=== PATIENT | male | born 1995 | race Caucasian/White ===

== ENCOUNTER 2016-11-27 11:54 | Emergency (ER) | payer SELFPAY ==
[2016-11-27] MEDS ORDERED: LIDOCAINE 1% INJ-PF (10 MG/ML) 30 ML SDV INJ ONE (12:26)
--- NOTE | 2016-11-27 12:27 | ER Document Report ---
ED Skin Rash/Insect Bite/Abscs - General Chief Complaint: Abscess Stated Complaint: POSSIBLE ABSCESS Time Seen by Provider: 11/27/16 12:11 Mode of Arrival: Ambulatory Information source: Patient Notes: Patient is a 21-year-old male who presents to the ER today for abscess to his abdomen that he states has been there for approximately 1 week. Patient denies any fever, chills, drainage from the area. 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 TRAVEL OUTSIDE OF THE [place] IN LAST 30 DAYS: No - Related Data Allergies/Adverse Reactions: No Known Allergies Allergy (Verified 10/25/12 12:01) Past Medical History - General Information source: Patient - Social History Smoking Status: Former Smoker Family History: Reviewed & Not Pertinent Patient has suicidal ideation: No Patient has homicidal ideation: No Renal/ Medical History: Denies: Hx Peritoneal Dialysis - Immunizations Hx Diphtheria, Pertussis, Tetanus Vaccination: Yes Review of Systems - Review of Systems Constitutional: No symptoms reported EENT: No symptoms reported Cardiovascular: No symptoms reported Respiratory: No symptoms reported Gastrointestinal: No symptoms reported Genitourinary: No symptoms reported Male Genitourinary: No symptoms reported Musculoskeletal: No symptoms reported Skin: See HPI Hematologic/Lymphatic: No symptoms reported Neurological/Psychological: No symptoms reported Physical Exam - Vital signs Vitals: Temp Pulse Resp BP Pulse Ox 98.4 F 90 16 139/81 H 100 11/27/16 11:57 11/27/16 11:57 11/27/16 11:57 11/27/16 11:57 11/27/16 11:57 - Notes Notes: PHYSICAL EXAMINATION: GENERAL: Well-appearing and in no acute distress. HEAD: Atraumatic, normocephalic. EYES: Pupils equal round and reactive to light, extraocular movements intact, sclera anicteric, conjunctiva are normal. ENT: ear canals without erythema or foreign body, TMs pearly polo with good bony landmarks, nares patent, oropharynx clear without exudates. Moist mucous membranes. NECK: Normal range of motion, supple without lymphadenopathy LUNGS: CTAB and equal. No wheezes rales or rhonchi. HEART: Regular rate and rhythm without murmurs ABDOMEN: see skin below, Soft, no tenderness. No guarding, no rebound EXTREMITIES: Normal range of motion, no pitting edema. No cyanosis. NEUROLOGICAL: Cranial nerves grossly intact. Normal sensory/motor exams. PSYCH: Normal mood, normal affect. SKIN: Warm, Dry, normal turgor, 3cm in diameter abscess, erythematous and flucutant to suprapubic area of abdomen, tender, warm Course - Vital Signs Vital signs: Temp Pulse Resp BP Pulse Ox 98.4 F 90 16 139/81 H 100 11/27/16 11:57 11/27/16 11:57 11/27/16 11:57 11/27/16 11:57 11/27/16 11:57 Procedures - Incision and Drainage Lower Abdomen Time completed: : Type: Simple Anesthetic type: 1% Lidocaine mL's of anesthetic: 4 Blade size: 11 I&D procedure: Betadine prep applied Incision Method: Incision made by scalpel Amount/type of drainage: pus and blood Discharge - Discharge Clinical Impression: Abscess Condition: Stable Disposition: HOME, SELF-CARE Instructions: Post Incision and Drainage, Abscess ([facility]), Oral Narcotic Medication ([facility]) Additional Instructions: Return immediately for any new or worsening symptoms. Follow up with primary care provider, call tomorrow to make followup appointment. Prescriptions: Doxycycline Hyclate 100 mg PO BID #20 capsule Forms: Return to Work
[2016-11-27] MEDS ORDERED: OXYCODONE-ACETAMINOPHEN 5-325 MG TABLET PO ONE (13:19)
[2016-11-27] MEDS ORDERED: HYDROCODONE/ACETAMINOPHEN 5-325 MG 6 TAB/DSPK PO PRN (13:23)
[2016-11-27 14:01] VITALS: BP 112/66
== END 2016-11-27 13:50 | disposition home or self-care (01) ==
LOC: ER 11:54
PROC: 0H97XZZ Drainage of Abdomen Skin, External Approach (ICD-10-PCS; principal; 2016-11-27)
DX: L02.211 Cutaneous abscess of abdominal wall (principal); Z87.891 Personal history of nicotine dependence
CPT/HCPCS: 10060; 99283; 87070; 87205; 87075; 87077; 87186; J3490

== ENCOUNTER 2018-11-02 21:14 | Emergency (ER) | payer SELFPAY ==
[2018-11-02 22:42] LABS: ABSOLUTE EOSINOPHILS # (AUTO) 0.1 10^3/uL (0.0-0.6); ABSOLUTE LYMPHOCYTES (AUTO) 1.4 10^3/uL (0.5-4.7); ABSOLUTE MONOCYTES (AUTO) 1.2 10^3/uL (0.1-1.4); ABSOLUTE NEUT (AUTO) 7.9 10^3/uL (1.7-8.2); BASOPHILS % (AUTO) 0.5 % (0-2); EOSINOPHILS % (AUTO) 1.1 % (0-6); HEMATOCRIT 40.7 % (37.9-51.0); LYMPHOCYTES % (AUTO) 12.8 % (13-45); MEAN CORPUSCULAR HEMOGLOBIN 28.6 pg (27.0-33.4); MEAN CORPUSCULAR HGB CONC 34.3 g/dL (32.0-36.0); MEAN CORPUSCULAR VOLUME 84 fl (80-97); MONOCYTES % (AUTO) 11.7 % (3-13); PLATELET COUNT 326 10^3/uL (150-450); RED BLOOD COUNT 4.88 10^6/uL (4.35-5.55); RED CELL DISTRIBUTION WIDTH 12.9 % (11.5-14.0); SEGMENTED NEUTROPHILS % (AUTO) 73.9 % (42-78); TOTAL CELLS COUNTED % (AUTO) 100 %; WHITE BLOOD COUNT 10.7 10^3/uL (4.0-10.5)
[2018-11-02 22:59] LABS: ALBUMIN 4.7 g/dL (3.5-5.0); ALKALINE PHOSPHATASE 57 U/L (38-126); ANION GAP 14 (5-19); ASPARTATE AMINO TRANSFERASE 26 U/L (17-59); BILIRUBIN,DIRECT 0.2 mg/dL (0.0-0.4); BILIRUBIN,TOTAL 0.4 mg/dL (0.2-1.3); BLOOD UREA NITROGEN 13 mg/dL (7-20); CALCIUM 9.9 mg/dL (8.4-10.2); CARBON DIOXIDE 25 mmol/L (22-30); CHLORIDE 101 mmol/L (98-107); GLUCOSE 98 mg/dL (75-110); POTASSIUM 4.1 mmol/L (3.6-5.0); TOTAL PROTEIN 7.7 g/dL (6.3-8.2)
[2018-11-02] MEDS ORDERED: LIDOCAINE 1% INJ-PF (10 MG/ML) 30 ML SDV INJ ONE (23:51)
[2018-11-02] MEDS ORDERED: SULFAMETHOXAZOLE/TRIMETHOPRIM 800-160 MG TABLET PO ONE (23:51)
[2018-11-02] MEDS ORDERED: CEFTRIAXONE INJ 1000 MG VIAL IM ONE (23:51)
--- NOTE | 2018-11-02 23:55 | ER Document Report ---
ED Extremity Problem, Lower - General Chief Complaint: Ankle Swelling Stated Complaint: ANKLE PAIN Time Seen by Provider: 11/02/18 23:42 Notes: Patient is a 23-year-old male that comes emergency department for chief complaint of swelling, pain, and redness to the left foot and ankle area. He states this is been progressing over the past 3 days. Denies fever/chills, nausea/vomiting. He states he has had both abscesses and cellulitis in the past. He reports his tetanus is up-to-date within 5 years. He denies any daily medications or medical history otherwise including diabetes. 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 TRAVEL OUTSIDE OF THE [place] IN LAST 30 DAYS: No - Related Data Allergies/Adverse Reactions: No Known Allergies Allergy (Verified 10/25/12 12:01) Past Medical History - General Information source: Patient - Social History Smoking Status: Never Smoker Drug Abuse: None Lives with: Family Family History: Reviewed & Not Pertinent Renal/ Medical History: Denies: Hx Peritoneal Dialysis - Immunizations Immunizations up to date: Yes Hx Diphtheria, Pertussis, Tetanus Vaccination: Yes Review of Systems - Review of Systems Constitutional: No symptoms reported EENT: No symptoms reported Cardiovascular: No symptoms reported Respiratory: No symptoms reported Gastrointestinal: No symptoms reported Genitourinary: No symptoms reported Male Genitourinary: No symptoms reported Musculoskeletal: See HPI Skin: See HPI Hematologic/Lymphatic: No symptoms reported Neurological/Psychological: No symptoms reported Physical Exam - Vital signs Vitals: Temp Pulse Resp BP Pulse Ox 99.4 F 121 H 16 151/76 H 98 11/02/18 21:55 11/02/18 21:55 11/02/18 21:55 11/02/18 21:55 11/02/18 21:55 - Notes Notes: GENERAL: Alert, interacts well. No acute distress. HEAD: Normocephalic, atraumatic. EYES: Pupils equal, round, and reactive to light. Extraocular movements intact. ENT: Oral mucosa moist, tongue midline. Oropharynx unremarkable. Airway patent. LUNGS: Clear to auscultation bilaterally, no wheezes, rales, or rhonchi. No respiratory distress. HEART: Regular rate and rhythm. No murmur ABDOMEN: Soft, non-tender. Non-distended. EXTREMITIES: Left foot with dorsal and lateral swelling and erythema with mild tenderness. There is soft tissue swelling noted of the foot compared to the right foot. Capillary refill and sensation intact, no open wounds, no induration or fluctuance, no streaking up the leg. Patient able to walk. Normal extremities otherwise. BACK: no cervical, thoracic, lumbar midline tenderness. No saddle anesthesia, normal distal neurovascular exam. NEUROLOGICAL: Alert and oriented x3. Normal speech. PSYCH: Normal affect, normal mood. SKIN: Warm, dry, normal turgor. Course - Re-evaluation Re-evalutation: Patient has a definite swollen left foot with erythema, warmth, some tenderness consistent with cellulitis. I do not see a wound but patient states he always is getting nicks and cuts with his job. He has had cellulitis in the past. Patient is afebrile, vital signs unremarkable on recheck, he is actually very well-appearing. He denies history of diabetes or IV drug abuse. Because of his dirty work environment I recommended a foot x-ray to rule out foreign body but patient refused. Patient requests antibiotic therapy, states he will elevate to the best of his ability, states he will return if he worsens. Stable time of discharge. - Vital Signs Vital signs: Temp Pulse Resp BP Pulse Ox 99.1 F 89 18 136/72 H 97 11/03/18 00:15 11/03/18 00:15 11/03/18 00:15 11/03/18 00:15 11/03/18 00:15 - Laboratory Result Diagrams: 11/02/18 22:07 11/02/18 22:07 Laboratory results interpreted by me: 11/02/18 22:07 WBC 10.7 H Lymphocytes % 12.8 L Discharge - Discharge Clinical Impression: Cellulitis of left foot Condition: Stable Disposition: HOME, SELF-CARE Additional Instructions: Your evaluation is consistent with cellulitis. Take the antibiotics as prescribed to completion, elevate your foot, monitor, return immediately if you worsen including spreading redness, fever/chills, or any other concerning or worsening symptoms. Prescriptions: Cephalexin Monohydrate [Keflex 500 mg Capsule] 500 mg PO QID #28 capsule Sulfamethoxazole/Trimethoprim [Bactrim Ds Tablet] 1 each PO BID #14 tablet
[2018-11-03 00:16] VITALS: BP 136/72
== END 2018-11-03 00:28 | disposition home or self-care (01) ==
LOC: ER 21:14
DX: L03.116 Cellulitis of left lower limb (principal); M25.472 Effusion, left ankle
CPT/HCPCS: 99283; 96372; 36415; 87040; 85025; 80053; J3490; J0696

== ENCOUNTER 2019-12-21 17:51 | Emergency (ER) | payer SELFPAY ==
[2019-12-21] MEDS ORDERED: NORMAL SALINE 1000 ML 1,000 ML IV ONE (18:36)
[2019-12-21] MEDS ORDERED: CLINDAMYCIN 300 MG/D5W RTU 300 MG/50 ML RTUPB IV ONE (18:36)
--- NOTE | 2019-12-21 18:36 | ER Document Report ---
ED Medical Screen (RME) - General TRAVEL OUTSIDE OF THE [place] IN LAST 30 DAYS: No <KATERINE HONEYCUTT - Last Filed: 12/21/19 19:19> <AJ JOHNSON IV - Last Filed: 12/22/19 01:30> - General Chief Complaint: Swelling of Lower Extremity Stated Complaint: FOOT PAIN/SWELLING Time Seen by Provider: 12/21/19 18:26 Notes: Patient is a 24-year-old male with a history of MRSA who presents emergency department with a chief complaint of left lower extremity swelling and pain. Patient states that he noticed he had swelling 2 days ago. Patient has a history of cellulitis. Denies any active IV drug use, but history of IV drug use. Denies any body aches or chills. Patient is an everyday smoker. Exam: 2+ pitting edema noted to left lower extremity. I have greeted and performed a rapid initial assessment of this patient. A comprehensive ED assessment and evaluation of the patient, analysis of test results and completion of medical decision making process will be conducted by an additional ED providers. (KATERINE HONEYCUTT) - Related Data Allergies/Adverse Reactions: No Known Allergies Allergy (Verified 10/25/12 12:01) Past Medical History - Social History Chew tobacco use (# tins/day): No Frequency of alcohol use: None Drug Abuse: None Renal/ Medical History: Denies: Hx Peritoneal Dialysis - Immunizations Immunizations up to date: Yes Hx Diphtheria, Pertussis, Tetanus Vaccination: Yes <KATERINE HONEYCUTT - Last Filed: 12/21/19 19:19> Physical Exam - Vital signs Vitals: Temp Pulse Resp BP Pulse Ox 98.3 F 107 H 20 136/67 H 100 12/21/19 18:07 12/21/19 18:07 12/21/19 18:07 12/21/19 18:07 12/21/19 18:07 Course - Laboratory Result Diagrams: 12/21/19 19:30 12/21/19 19:30 <AJ JOHNSON IV - Last Filed: 12/22/19 01:30> - Vital Signs Vital signs: Temp Pulse Resp BP Pulse Ox 97.7 F 94 20 120/72 99 12/21/19 22:21 12/21/19 22:21 12/21/19 18:07 12/21/19 22:21 12/21/19 22:21
--- NOTE | 2019-12-21 19:33 | RADIOLOGY REPORT (SQ) ---
EXAM DESCRIPTION: FOOT LEFT COMPLETE IMAGES COMPLETED DATE/TIME: 12/21/2019 7:17 pm REASON FOR STUDY: LLE swelling COMPARISON: None. NUMBER OF VIEWS: Three views. TECHNIQUE: AP, lateral and oblique radiographic images acquired of the left foot. LIMITATIONS: None. FINDINGS: MINERALIZATION: Normal. BONES: No acute fracture or dislocation. No worrisome bone lesions. JOINTS: No effusions. SOFT TISSUES: Mild soft tissue swelling. 3 mm linear metallic object in the soft tissues adjacent to the tuft of the great toe. OTHER: No other significant finding. IMPRESSION: 3 MM LINEAR METALLIC OBJECT IN THE SOFT TISSUES ADJACENT TO THE TUFT OF THE GREAT TOE. MILD SOFT TISSUE SWELLING IN THE MIDFOOT. NO SIGNIFICANT BONY FINDINGS. TECHNICAL DOCUMENTATION: JOB ID: [id number] 2010 [employer]- All Rights Reserved Reading location - IP/workstation name: [email or web address]
[2019-12-21 19:49] LABS: ABSOLUTE EOSINOPHILS # (AUTO) 0.1 10^3/uL (0.0-0.6); ABSOLUTE LYMPHOCYTES (AUTO) 1.7 10^3/uL (0.5-4.7); ABSOLUTE MONOCYTES (AUTO) 0.9 10^3/uL (0.1-1.4); ABSOLUTE NEUT (AUTO) 4.9 10^3/uL (1.7-8.2); BASOPHILS % (AUTO) 0.6 % (0-2); EOSINOPHILS % (AUTO) 1.7 % (0-6); HEMATOCRIT 40.4 % (37.9-51.0); HEMOGLOBIN 13.8 g/dL (13.5-17.0); LYMPHOCYTES % (AUTO) 21.5 % (13-45); MEAN CORPUSCULAR HEMOGLOBIN 28.8 pg (27.0-33.4); MEAN CORPUSCULAR HGB CONC 34.2 g/dL (32.0-36.0); MEAN CORPUSCULAR VOLUME 84 fl (80-97); MONOCYTES % (AUTO) 11.8 % (3-13); PLATELET COUNT 334 10^3/uL (150-450); RED BLOOD COUNT 4.79 10^6/uL (4.35-5.55); RED CELL DISTRIBUTION WIDTH 13.5 % (11.5-14.0); SEGMENTED NEUTROPHILS % (AUTO) 64.4 % (42-78); TOTAL CELLS COUNTED % (AUTO) 100 %; WHITE BLOOD COUNT 7.7 10^3/uL (4.0-10.5)
[2019-12-21 20:06] LABS: ALBUMIN 4.5 g/dL (3.5-5.0); ALKALINE PHOSPHATASE 69 U/L (38-126); ANION GAP 10 (5-19); ASPARTATE AMINO TRANSFERASE 20 U/L (17-59); BILIRUBIN,DIRECT 0.3 mg/dL (0.0-0.4); BILIRUBIN,TOTAL 0.5 mg/dL (0.2-1.3); BLOOD UREA NITROGEN 12 mg/dL (7-20); CALCIUM 9.8 mg/dL (8.4-10.2); CARBON DIOXIDE 29 mmol/L (22-30); CHLORIDE 99 mmol/L (98-107); GLUCOSE 91 mg/dL (75-110); POTASSIUM 4.6 mmol/L (3.6-5.0); TOTAL PROTEIN 7.7 g/dL (6.3-8.2)
--- NOTE | 2019-12-21 20:16 | RADIOLOGY REPORT (SQ) ---
EXAM DESCRIPTION: [employer]: US EXTREMITY VEINS UNILATERAL CLINICAL HISTORY: 24 years Male; LLE swelling TECHNIQUE: Multiple grayscale sonographic images of the leg were obtained utilizing a high-frequency linear array transducer supplemented with color Doppler, compression and augmentation techniques. COMPARISON: None. FINDINGS: Left leg veins: Common femoral: normal Greater saphenous: normal upper Superficial femoral: normal mid Superficial femoral: normal lower Superficial femoral: normal Popliteal: normal Posterior tibial: normal IMPRESSION: 1. No sonographic evidence for left lower extremity deep venous thrombosis.
[2019-12-22] MEDS ORDERED: CLINDAMYCIN 600 MG/D5W RTU 600 MG/50 ML RTUPB IV ONE (01:42)
--- NOTE | 2019-12-22 01:48 | ER Document Report ---
ED General - General Chief Complaint: Swelling of Lower Extremity Stated Complaint: FOOT PAIN/SWELLING Time Seen by Provider: 12/21/19 18:26 TRAVEL OUTSIDE OF THE [place] IN LAST 30 DAYS: No - HPI Context: This is a 24-year-old male with history of IV drug abuse as well as a history of cellulitis which he states he always gets in his lower extremities presenting to the emergency department complaining of left lower extremity pain and swelling for the past 2 days. Patient states his pain is throbbing in nature and a 3 out of 5. Patient states that pain is worsened with weightbearing and ambulation an d slightly relieved with rest. Patient states he has had the same symptoms in the past. Patient denies injecting into his toes or in between his toes. Patient denies recent puncture wounds to lower extremities. Patient denies fever, chills, shortness of breath, chest pain, nausea, vomiting, abdominal pain, history of COVID infection, loss of sense of taste or sense of smell, or exposure to COVID positive patients or patients under investigation for COVID. Associated symptoms: Other - See HPI Exacerbated by: Other - See HPI Relieved by: Other - See HPI Similar symptoms previously: Yes - Related Data Allergies/Adverse Reactions: No Known Allergies Allergy (Verified 10/25/12 12:01) Past Medical History - General Information source: Patient - Social History Smoking Status: Current Every Day Smoker Chew tobacco use (# tins/day): No Frequency of alcohol use: None Drug Abuse: Other - History of IV drug abuse Family History: Reviewed & Not Pertinent Renal/ Medical History: Denies: Hx Peritoneal Dialysis - Immunizations Immunizations up to date: Yes Hx Diphtheria, Pertussis, Tetanus Vaccination: Yes Review of Systems - Review of Systems Constitutional: No symptoms reported EENT: No symptoms reported Cardiovascular: Edema Respiratory: No symptoms reported Gastrointestinal: No symptoms reported Genitourinary: No symptoms reported Male Genitourinary: No symptoms reported Musculoskeletal: See HPI Skin: No symptoms reported Hematologic/Lymphatic: No symptoms reported Neurological/Psychological: No symptoms reported -: Yes All other systems reviewed and negative Physical Exam - Vital signs Vitals: Temp Pulse Resp BP Pulse Ox 98.3 F 107 H 20 136/67 H 100 12/21/19 18:07 12/21/19 18:07 12/21/19 18:07 12/21/19 18:07 12/21/19 18:07 - Notes Notes: CONSTITUTIONAL [Vital signs reviewed, Patient appears comfortable, Alert and oriented X 3, Normal stature.] HEAD [Atraumatic, Normocephalic.] EYES [Eyes are normal to inspection, No discharge from eyes, Extraocular muscles intact, Sclera are normal, Conjunctiva are normal.] NECK [Normal ROM, No jugular venous distention, No meningeal signs, no carotid bruit.] RESPIRATORY CHEST [Chest is nontender, Breath sounds normal, No respiratory distress.] CARDIOVASCULAR [RRR, No murmurs, Normal S1 S2, No rub, No gallop.] ABDOMEN [Abdomen is nontender, No pulsatile masses, No other masses, Bowel sounds normal, No distension, No peritoneal signs, No hernias.] BACK [There is no CVA Tenderness, There is no tenderness to palpation, Normal inspection.] UPPER EXTREMITY [Inspection normal, No cyanosis, No clubbing, No edema, 2+ radial pulses.] LOWER EXTREMITY Lower extremity exam is significant for edema and erythema and patient's left lower extremity. Inspection of the plantar surface of the patient's left foot r eveals no evidence of a puncture wound. NEURO [No focal motor deficits, No focal sensory deficits, Speech normal.] SKIN [Skin is warm, Skin is dry, erythema is present in the patient's left lower ex tremity.] LYMPHATIC [No adenopathy in neck.] PSYCHIATRIC [Normal affect. ] Course - Re-evaluation Re-evalutation: 12/22/19 02:33 Results of ED MSE discussed with patient. All questions were answered prior to discharge. Emergency signs and symptoms, reasons to return to the emergency department discussed with patient. - Vital Signs Vital signs: Temp Pulse Resp BP Pulse Ox 97.7 F 94 20 120/72 99 12/21/19 22:21 12/21/19 22:21 12/21/19 18:07 12/21/19 22:21 12/21/19 22:21 - Laboratory Result Diagrams: 12/21/19 19:30 12/21/19 19:30 - Diagnostic Test Radiology reviewed: Reports reviewed Discharge - Discharge Clinical Impression: Cellulitis of left lower extremity Condition: Stable Disposition: HOME, SELF-CARE Additional Instructions: Return to the Emergency Department without delay if any worse. HOME CARE INSTRUCTIONS & INFORMATION: Thank you for choosing us for your medical needs. We hope you're satisfied with the care you received. After you leave, you must properly care for your problem and, at the same time, observe its progress. Any condition can change. Some illnesses can change rapidly over hours or days. If your condition worsens, return to the Emergency Department or see your physician promptly. ABOUT YOUR X-RAYS AND EKG'S: If you had an EKG or X-rays taken, they have been read by the Emergency Physician. The X-rays and EKG's will also be read by a Radiologist or Groundskeeping Maintenance Worker within 24 hours. If discrepancies are noted, you will be notified by telephone. Please be certain the ED has a correct telephone number & address where you can be reached. Also, realize that some fractures or abnormalities do not show up on initial X-rays. If your symptoms continue, see your physician. ABOUT YOUR LABORATORY TEST: If you had laboratory tests, the results have been reviewed by the Emergency Physician. Some test results (for example cultures) may not be available for several days. You will be contacted if any test result shows you need additional treatment. Please be certain the ED has a correct telephone number and address where you can be reached. ABOUT YOUR MEDICATIONS: You will receive instructions on how to take your medicine on the prescription label you receive. Additional information may be provided by the Pharmacy. If you have questions afterwards, call the ED for clarification or further instructions. Some prescribed medications may cause drowsiness. Do not perform tasks such as driving a car or operating machinery without consulting your Pharmacist. If you feel you need a refill of pain medication, your condition will need re-evaluation. Please do not call for a refill of any medication. ABOUT YOUR SIGNATURE: Signature of this document acknowledges to followin. Understanding that you received emergency treatment and that you may be released before al medical problems are known or treated. Please be certain the ED has a correct phone number & address where you can be reached. 2. Acknowledgement that you will arrange for follow-up care as recommended. 3. Authorization for the Emergency Physician to provide information to your follow-up Physician in order to maximize your care. AT ANY TIME, IF YOUR SYMPTOMS CHANGE SIGNIFICANTLY OR WORSEN OR YOU DEVELOP NEW SYMPTOMS, RETURN TO THE EMERGENCY DEPARTMENT IMMEDIATELY FOR RE-EVALUATION. OUR GOAL IS TO PROVIDE EXCELLENT MEDICAL CARE! WE HOPE THAT WE HAVE MET YOUR EXPECTATIONS DURING YOUR EMERGENCY DEPARTMENT VISIT AND THAT YOU FEEL YOU HAVE RECEIVED EXCELLENT CARE! Cellulitis You have an infection of your skin and underlying soft tissues called cellulitis. This is due to bacteria, which can enter through any break in the skin, or even through an irritated hair follicle. Untreated, cellulitis will usually worsen. Antibiotics are required. Usually, warm packs or warm soaks, and elevation of the infected area are recommended. You should start getting better within 24 to 36 hours. Most infections respond quickly to the right medication. Follow-up care is important, however, to check for abscess (boil) formation, unsuspected foreign body, or resistant infection. If you develop fever, chills, or if the area of infection is becoming rapidly more swollen or painful, call the doctor at once. Prescriptions: Clindamycin HCl [Cleocin 150 mg Capsule] 450 mg PO TID 7 Days #63 capsule Referrals: KEM LACEY MD [HONORARY] - Follow up as needed
[2019-12-22 05:28] VITALS: BP 122/60
== END 2019-12-22 05:28 | disposition home or self-care (01) ==
LOC: ER 17:51
DX: L03.116 Cellulitis of left lower limb (principal); M79.5 Residual foreign body in soft tissue; F17.200 Nicotine dependence, unspecified, uncomplicated
CPT/HCPCS: 99285; 96361; 96365; 96366; 36415; 87040; 85025; 80053; 93971; 73630; J7030